=== PATIENT | female | born 1975 | race Caucasian/White ===

== ENCOUNTER 2022-09-02 07:52 | Outpatient (CLI) | payer BC, SELFPAY | END 2022-09-02 07:53 | disposition home or self-care (01) | LOC: OP CLINIC 07:53 | PROVIDERS: PCP Physician Assistant Medical; Visit Provider Surgery | DX: Z12.11 Encounter for screening for malignant neoplasm of colon (principal); Z83.71 Family history of colonic polyps | CPT/HCPCS: 45378; 99153; J2250; J3010 ==

== ENCOUNTER 2022-10-31 09:10 | Outpatient (CLI) | payer BC, SELFPAY | END 2022-10-31 09:11 | disposition home or self-care (01) | LOC: NFLDREF 11-01 07:07 | PROVIDERS: PCP Physician Assistant Medical; Referring Provider Physician Assistant Medical; Visit Provider Physician Assistant Medical | DX: Z01.419 Encounter for gynecological examination (general) (routine) without abnormal findings (principal); E61.1 Iron deficiency; D50.0 Iron deficiency anemia secondary to blood loss (chronic); Z13.6 Encounter for screening for cardiovascular disorders | CPT/HCPCS: 80053; 80061; 84443 ==

== ENCOUNTER 2023-02-04 15:18 | Outpatient (CLI) | payer BC, SELFPAY ==
--- NOTE | 2023-02-04 15:40 | CRLHL7_ITS ---
For Patients: As a result of the Century Cures Act, medical imaging exams and procedure reports are released immediately into your electronic medical record. You may view this report before your referring provider. If you have questions, please contact your health care provider. BILATERAL SCREENING MAMMOGRAM WITH COMPUTER-AIDED DETECTION TECHNIQUE: CC and MLO views were obtained. These mammographic images have been obtained using full-field digital technique. These mammographic images were interpreted with the benefit of computer-aided detection. COMPARISON FILM: 01/21/19, 04/03/15, 02/22/15. FINDINGS: The breasts are heterogeneously dense, which may obscure small masses IMPRESSION: There is no radiographic evidence for malignancy. ASSESSMENT: BI-RADS Category 1: Negative RECOMMENDATION: Routine screening mammogram in 1 year. A lay language report of this examination will be provided to the patient. Rodo Delaney M.D. Diagnostic Radiologist [email or web address] JAN/Dictated by: Rodo Delaney MD @ 02/05/2023 12:32:00 PM (Electronically Signed)
== END 2023-02-04 15:19 | disposition home or self-care (01) ==
LOC: MAMMO 15:19
PROVIDERS: PCP Physician Assistant Medical; Visit Provider Registered Nurse
DX: Z12.31 Encounter for screening mammogram for malignant neoplasm of breast (principal); R92.2 Inconclusive mammogram
CPT/HCPCS: 77067